=== PATIENT | male | born 1995 | race American Indian/Alaskan Native ===

== ENCOUNTER 2017-04-07 14:45 | Emergency (ER) | payer SELFPAY ==
[2017-04-07 15:11] VITALS: BP 143/87
[2017-04-07] MEDS ORDERED: DELTASONE PO ONE (15:50)
[2017-04-07] MEDS ORDERED: ROBITUSSIN PO ONE (15:50)
--- NOTE | 2017-04-07 15:57 | Emergency Department Report ---
HPI - General Chief Complaint: Sore Throat Time Seen by Provider: 04/07/17 15:36 - HPI HPI: 21-year-old male presents complaining of throat pain, cough, congestion 2 weeks. Patient states his mental little leaking and off over the past 2 weeks and has developed mold in his bedroom. Patient states he still is low several times to have a fixation and has not been fixed yet. Patient states he continued to smell anymore and is causing him to have hard time breathing and is developed though the symptoms since then. He denies any fevers chills, nausea ,vomiting/abdominal pain/chest pain or any other problems ED Past Medical Hx - Past Medical History Previous Medical History?: Yes Additional medical history: heart murmur - Surgical History Past Surgical History?: No Additional Surgical History: bonnie - Social History Smoking Status: Never Smoker Substance Use Type: Non Opiate Pain - Medications Home Medications: Home Medications Medication Instructions Recorded Confirmed Last Taken Type Acetamin/Codeine 120-12Mg/5 ml 5 ml PO TID PRN #60 ml 04/07/17 Unknown Rx [Tylenol/Codeine] Pseudoephedrine ER [Sudafed 12 Hr] 120 mg PO BID #20 tablet.er 04/07/17 Unknown Rx ED Review of Systems ROS: Stated complaint: COUGHING, SORE THROAT, HEADACHE Other details as noted in HPI Constitutional: denies: chills, fever Eyes: denies: eye pain, eye discharge, vision change ENT: denies: ear pain, throat pain Respiratory: denies: cough, shortness of breath, wheezing Cardiovascular: denies: chest pain, palpitations Endocrine: no symptoms reported Gastrointestinal: denies: abdominal pain, nausea, diarrhea Genitourinary: denies: urgency, dysuria Musculoskeletal: denies: back pain, joint swelling, arthralgia Skin: denies: rash, lesions Neurological: denies: headache, weakness, paresthesias Psychiatric: denies: anxiety, depression Hematological/Lymphatic: denies: easy bleeding, easy bruising Physical Exam - Physical Exam Vital Signs: Vital Signs 04/07/17 15:07 Temperature 99.2 F Pulse Rate 107 H Respiratory 20 Rate Blood Pressure 143/87 O2 Sat by Pulse 97 Oximetry Physical Exam: GENERAL: Alert and oriented x3, no apparent distress, Normal Gait, atraumatic. HEAD: Head is normocephalic and a-traumatic. EYES: Extra ocular muscles are intact. Pupils are equal, round, and reactive to light and accommodation. EARS: symetrical, atraumatic, non tender, ear canal clear and moderate cerumen, tympanic membrance non inflamed, serous fluid seen behing TM bilat. gross auditory nml bilaterally. NOSE: Nose symetrical, Nontender,Nares appeared normal. MOUTH:Mouth is well hydrated and without lesions. Tonsils nonerythematous, mildly swollen, Uvula midline, Tongue not elevated. Mucous membranes are moist. Posterior pharynx clear, no exudate or lesions. Patent airways. NECK: Supple. Non edematous, No carotid bruits. No lymphadenopathy or thyromegaly. No C-spine tenderness LUNGS: Symetrical with respiration, No wheezing, no rales or crackles, CTAB. HEART: S1, S2 present, regular rate and rhythm without murmur, no rubs, no gallops. Non tender to palpation ABDOMEN: No organomegaly was noted,Positive bowel sounds, soft, and non- distended. . Nontender to palpation on all Quadrants, NO CVA tenderness. SKIN: Warm and dry, No lesions, No ulceration or induration present. ED Course Vital Signs 04/07/17 15:07 Temperature 99.2 F Pulse Rate 107 H Respiratory 20 Rate Blood Pressure 143/87 O2 Sat by Pulse 97 Oximetry ED Medical Decision Making - Lab Data Last Vital Signs Temp 99.2 F 04/07/17 15:07 Pulse 88 04/07/17 17:28 Resp 18 04/07/17 17:28 BP 143/87 04/07/17 15:07 Pulse Ox 100 04/07/17 17:28 - Medical Decision Making 21-year-old male presents with upper respiratory infection ED course: Patient received prednisone ED. Rapid strep performed. Rapid strep negative. I discussed this finding with the patient. I discussed with patient to take symptomatic relief and take medications as prescribed. I discussed the patient keep away from mold and avoid worsening triggers. Vital signs are normal patient is in no acute distress or respiratory distress. Critical care attestation.: If time is entered above; I have spent that time in minutes in the direct care of this critically ill patient, excluding procedure time. ED Disposition Clinical Impression: URI (upper respiratory infection) Qualifiers: URI type: unspecified URI Qualified Code(s): J06.9 - Acute upper respiratory infection, unspecified Pharyngitis Qualifiers: Pharyngitis/tonsillitis etiology: unspecified etiology Qualified Code(s): J02.9 - Acute pharyngitis, unspecified Disposition: DC- TO HOME OR SELFCARE Is pt being admited?: No Does the pt Need Aspirin: No Condition: Stable Instructions: Pharyngitis (ED), Upper Respiratory Infection (ED) Additional Instructions: Stay away from triggers such as dust, mold, etc. Take medications as prescribed. if your symptoms worsen please return to ED immediately Prescriptions: Acetamin/Codeine 120-12Mg/5 ml [Tylenol/Codeine] 5 ml PO TID PRN #60 ml PRN Reason: Pain Pseudoephedrine ER [Sudafed 12 Hr] 120 mg PO BID #20 tablet.er Referrals: PRIMARY CARE, [Primary Care Provider] - 3-5 Days [facility] [Outside] - 3-5 Days [facility] [Outside] - 3-5 Days [facility] [Outside] - 3-5 Days Forms: Work/School Release Form(ED) Time of Disposition: 17:09
== END 2017-04-07 17:28 | disposition home or self-care (01) ==
LOC: ED 14:45
DX: J06.9 Acute upper respiratory infection, unspecified (principal); J02.9 Acute pharyngitis, unspecified
CPT/HCPCS: 87116; 87430; 99282; J7512

== ENCOUNTER → 2017-11-03 23:48 | Emergency (ER) | payer SELFPAY | END | disposition left against medical advice (07) | LOC: ED 23:48 | DX: R51 Headache (principal); Z53.21 Procedure and treatment not carried out due to patient leaving prior to being seen by health care provider ==